=== PATIENT | male | born 1955 | race Caucasian/White ===

== ENCOUNTER 2018-02-21 13:40 | Emergency (ER) | payer OTHER ==
[~2018-02-21] VITALS: Ht 172.7 cm; Wt 104.3 kg
[~2018-02-21 13:40] MED LIST: AUG500 PO; FENOFIBRATE54 M1 PO; GLIMEPIRIDE2 M1 PO; GOOD SENSE ASPI81 M3 PO; LAC PO; LISINOPRIL10 MG PO; MEDROL DOSEPAK4 MG PO; METFORMIN HCL1000 MG PO; PENICILLIN VK500 MG PO
[2018-02-21 13:51] VITALS: Ht 172.7 cm; Wt 104.3 kg
[2018-02-21 14:21] VITALS: BP 154/86
== END 2018-02-21 14:21 | disposition home or self-care (01) ==
LOC: ED 13:40
DX: S13.4XXA Sprain of ligaments of cervical spine, initial encounter (principal); S80.02XA Contusion of left knee, initial encounter; I10 Essential (primary) hypertension; E11.9 Type 2 diabetes mellitus without complications; V43.52XA Car driver injured in collision with other type car in traffic accident, initial encounter; Y93.I9 Activity, other involving external motion; Y92.89 Other specified places as the place of occurrence of the external cause; Y99.8 Other external cause status